=== PATIENT | female | born 1990 | race Two or more races ===

== ENCOUNTER 2017-11-17 19:50 | Emergency (ER) | payer OTHER ==
[2017-11-17] MEDS ORDERED: NORMAL SALINE 1000 ML 1,000 ML IV ONE (20:32)
[2017-11-17] MEDS ORDERED: LORAZEPAM INJ 2 MG/1 ML VIAL IV ONE (20:32)
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
[2017-11-17] MEDS: FENTANYL CITRATE INJ/PF 100 MCG/2 ML AMPUL IV PRN ×3 (21:12→23:56)
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
[2017-11-17] MEDS ORDERED: HYDROCODONE/ACETAMINOPHEN 5-325 MG 6 TAB/DSPK PO PRN (23:18)
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
[2017-11-18 00:15] VITALS: BP 121/75
== END 2017-11-18 00:15 | disposition home or self-care (01) ==
LOC: ER 19:50
DX: S02.19XA Other fracture of base of skull, initial encounter for closed fracture (principal); S52.502A Unspecified fracture of the lower end of left radius, initial encounter for closed fracture; M79.631 Pain in right forearm; M89.8X5 Other specified disorders of bone, thigh; M89.8X2 Other specified disorders of bone, upper arm; V49.50XA Passenger injured in collision with unspecified motor vehicles in traffic accident, initial encounter; Y93.84 Activity, sleeping; G71.0 Muscular dystrophy; R00.0 Tachycardia, unspecified; R06.82 Tachypnea, not elsewhere classified
CPT/HCPCS: 96376; 99284; 96361; 96374; 96375; 71010; 73552 ×2; 73090; 73060; 73110; 70450; 70486; 72125; 29125; J3010; J2060; J7030

== ENCOUNTER 2017-11-25 10:21 | Emergency (ER) | payer OTHER ==
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
[2017-11-25] MEDS ORDERED: OXYCODONE-ACETAMINOPHEN 5-325 MG TABLET PO ONE (14:08)
[2017-11-25 14:51] VITALS: BP 109/59
== END 2017-11-25 14:50 | disposition home or self-care (01) ==
LOC: ER 10:21
DX: S22.42XA Multiple fractures of ribs, left side, initial encounter for closed fracture (principal); M79.601 Pain in right arm; M25.531 Pain in right wrist; M25.532 Pain in left wrist; M79.1 Myalgia; R07.81 Pleurodynia; V87.7XXA Person injured in collision between other specified motor vehicles (traffic), initial encounter
CPT/HCPCS: 99283

== ENCOUNTER → 2020-05-27 | Outpatient (CLI) | payer BC ==
[2020-05-27 13:40] LABS: A TYPE INFLUENZA AG NEGATIVE (NEGATIVE); B INFLUENZA AG NEGATIVE (NEGATIVE)
[2020-05-27 14:47] VITALS: BP 87/48
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
== END ==
LOC: RDC 11:02
PROVIDERS: ATTEND Registered Nurse
DX: Z20.828 Contact with and (suspected) exposure to other viral communicable diseases (principal); J06.9 Acute upper respiratory infection, unspecified; R05 Cough; J02.9 Acute pharyngitis, unspecified; M79.10 Myalgia, unspecified site; R51 Headache; R10.9 Unspecified abdominal pain; G71.11 Myotonic muscular dystrophy
CPT/HCPCS: 87070; 87804; 87880